=== PATIENT | female | born 1965 ===

== ENCOUNTER 2018-03-14 14:25 | Emergency (ER) | payer OTHER ==
[~2018-03-14] VITALS: Ht 175.3 cm; Wt 93.0 kg
[2018-03-14] MEDS ORDERED: HYZAAR 100-12.1 EACH (14:40)
[2018-03-14] MEDS ORDERED: ASA81 MG (14:40)
== END 2018-03-14 19:33 | disposition home or self-care (01) ==
LOC: ER 14:25 → EDBD 14:41 → ER 14:41
DX: M62.412 Contracture of muscle, left shoulder (principal)

== ENCOUNTER 2019-10-07 05:22 | Emergency (ER) | payer OTHER ==
[~2019-10-07] VITALS: Ht 175.3 cm; Wt 97.1 kg
[~2019-10-07 05:22] MED LIST: ASA81 MG; HYZAAR 100-12.1 EACH
== END 2019-10-07 13:45 | disposition home or self-care (01) ==
LOC: ER 05:22 → CPU-OBS 05:27 → ER 13:45
DX: R07.89 Other chest pain (principal)
CPT/HCPCS: G0378; G0379; 93005